=== PATIENT | male | born 1940 | race Caucasian/White ===

== ENCOUNTER 2018-02-07 00:23 | Emergency (ER) | payer MEDICARE ==
[~2018-02-07] VITALS: Ht 177.8 cm; Wt 90.9 kg
[~2018-02-07 00:23] MED LIST: BACTRIM DS 8001 TAB PO; CEPHALEXIN500 M1 PO; NAPROSYN500 MG PO; NO HOME MEDICATIONS; NORCO 325 MG-51 TAB PO
[2018-02-07 00:29] VITALS: BP 153/74; PULSE 76; TEMP 97.9
[2018-02-07] MEDS ORDERED: CLEOCIN HCL300 MG PO (01:20)
[2018-02-07] MEDS ORDERED: NORCO 325 MG-51 TAB PO (01:20)
== END 2018-02-07 01:29 | disposition home or self-care (01) ==
LOC: COL.ER 00:23
DX: K04.7 Periapical abscess without sinus (principal); R68.84 Jaw pain; Z98.818 Other dental procedure status

== ENCOUNTER → 2018-12-18 | Outpatient (CLI) | payer MEDICARE ==
[~2018-12-18] MED LIST changes: +CLEOCIN HCL300 MG PO
== END ==
LOC: ZCOL.LAB 15:59
DX: Z01.812 Encounter for preprocedural laboratory examination (principal); Z86.14 Personal history of Methicillin resistant Staphylococcus aureus infection

== ENCOUNTER 2019-05-28 13:05 | Emergency (ER) | payer MEDICARE, OTHER ==
[~2019-05-28] VITALS: Ht 175.3 cm; Wt 90.9 kg
[2019-05-28 13:14] VITALS: BP 152/78; PULSE 74; TEMP 97.9
== END 2019-05-28 14:16 | disposition home or self-care (01) ==
LOC: COL.ER 13:05
DX: H57.12 Ocular pain, left eye (principal); H57.89 Other specified disorders of eye and adnexa